=== PATIENT | female | born 1945 | race Caucasian/White ===

== ENCOUNTER → 2017-03-18 | Outpatient (REF) | payer MEDICARE, OTHER ==
[~2017-03-18] MED LIST: ALLO10TA PO; CALTCHW PO; FISH5CAP PO; FLAX1300 PO; FLON1SPR; LISI2.5T3 PO; MAGN500C PO; METF500T13 PO; OMEP40CA2 PO; OSTETAB4 PO; SPIR50TA2 PO; TORS100T PO; VITA500046 PO; VITACAP8 PO; ZYRT10CA PO; [UNRECOGNIZED DRUG - CODE] EX; [UNRECOGNIZED DRUG - CODE] XX
[2017-03-18 13:34] LABS: BASO % 0.3 % (0.0-1.0); EOS # 0.2 K/mm3 (0.0-0.50); EOS % 2.4 % (0.0-3.0); LARGE UNSTAINED CELL # 0.1 K/mm3 (0.0-0.4); LARGE UNSTAINED CELL % 1.1 % (0.0-4.0); LYMPH # 1.8 K/mm3 (1.5-4.5); LYMPH % 16.4 % (24.0-44.0); MEAN CORPUSCULAR HEMOGLOBIN 29.8 pg (27.0-33.0); MEAN CORPUSCULAR VOLUME 90.4 fl (80.0-96.0); MONO # 0.5 K/mm3 (0.0-0.8); MONO % 4.5 % (0.0-5.0); NEUTROPHILS # 7.6 K/mm3 (1.8-7.7); NEUTROPHILS % 75.3 % (36.0-66.0); PLATELET COUNT, AUTOMATED 298 k/mm3 (150-450); RED CELL DISTRIBUTION WIDTH 14.7 % (11.5-14.5); WHITE BLOOD COUNT 10.1 K/mm3 (4.0-10.0)
[2017-03-18 13:44] LABS: FOLATE > 24.0 NG/ML; VITAMIN B12 LEVEL 834 PG/ML
[2017-03-18 13:49] LABS: ALBUMIN 3.7 GM/DL (3.2-5.2); ALBUMIN/GLOBULIN RATIO 1.12 (1.00-1.93); ALKALINE PHOSPHATASE 86 U/L (45-117); ALT/SGPT 29 U/L (12-78); ANION GAP 11 MEQ/L (8-16); AST/SGOT 10 U/L (15-37); BILIRUBIN,TOTAL 0.4 MG/DL (0.2-1.0); BLOOD UREA NITROGEN 23 MG/DL (7-18); CALCIUM LEVEL 8.9 MG/DL (8.8-10.2); CARBON DIOXIDE LEVEL 28 MEQ/L (21-32); CHLORIDE LEVEL 95 MEQ/L (98-107); CREATININE FOR GFR 1.13 MG/DL (0.55-1.02); GLOMERULAR FILTRATION RATE 50.7 (>39); GLUCOSE, FASTING 122 MG/DL (83-110); POTASSIUM SERUM 3.8 MEQ/L (3.5-5.1); SODIUM LEVEL 134 MEQ/L (136-145)
[2017-03-18 14:15] LABS: ERYTHROCYTE SEDIMENTATION RATE 44 mm/hr (0-30)
[2017-03-23 00:06] LABS: VITAMIN E LEVEL 12.3 mg/L (6.5-21.5)
== END ==
LOC: M LABNEURO 12:24
PROVIDERS: ATTEND Psychiatry & Neurology Neurology
DX: R25.1 Tremor, unspecified (principal); Z79.01 Long term (current) use of anticoagulants

== ENCOUNTER → 2017-04-18 | Outpatient (REF) | payer MEDICARE, OTHER ==
[2017-04-18 15:24] LABS: CALCIUM LEVEL 8.7 MG/DL (8.8-10.2); CREATININE FOR GFR 1.13 MG/DL (0.55-1.02); GLOMERULAR FILTRATION RATE 50.7 (>39); MAGNESIUM LEVEL 2.5 MG/DL (1.8-2.4); POTASSIUM SERUM 4.3 MEQ/L (3.5-5.1)
== END ==
LOC: M LABDRAW1 13:46
PROVIDERS: ATTEND Nurse Practitioner Family
DX: I10 Essential (primary) hypertension (principal); E78.2 Mixed hyperlipidemia

== ENCOUNTER → 2017-07-18 | Outpatient (CLI) | payer MEDICARE, BC ==
--- NOTE | 2017-07-18 14:41 | REP ---
Digital screening bilateral mammography with CAD: Comparison mammography July 12, 2016. Also reviewed are the June 25, 2015 and June 24, 2014 prior studies. Findings: In the right breast, today's mammography demonstrates a 7 mm well-circumscribed nodular neodensity projecting in the upper outer quadrant which merits further evaluation. In addition, there is a questionable developing density medially on the CC view only. Otherwise scattered fibroglandular elements are again seen and are unchanged from prior mammography dating back to 2013. The left breast is unchanged and otherwise unremarkable as well. Impression: BI-RADS category 0 incomplete. Additional imaging and/or prior images needed. Incomplete breast imaging right breast nodular neodensity and possible developing density separately identified in the right breast. Diagnostic right breast mammography and focused right breast sonography recommended. This mammogram was interpreted with the aid of an FDA-approved computer-aided detection system. The patient states that she/he has not had a clinical breast exam in over a year. The patient letter being requested is M0.
== END ==
LOC: M WHC 12:38
PROVIDERS: ATTEND Nurse Practitioner Family
DX: Z12.31 Encounter for screening mammogram for malignant neoplasm of breast (principal)

== ENCOUNTER → 2017-07-28 | Outpatient (REF) | payer MEDICARE, BC ==
[2017-07-28 13:31] LABS: RETIC HEMOGLOBIN EQUIVALENT 32.9 pg (24-36); RETICULOCYTE % 1.8 % (0.5-1.5)
[2017-07-28 13:39] LABS: URIC ACID 6.6 MG/DL (2.6-6.0)
== END ==
LOC: M LAB REF 12:48
PROVIDERS: ATTEND Family Medicine
DX: M10.9 Gout, unspecified (principal); D64.9 Anemia, unspecified

== ENCOUNTER 2018-05-15 08:39 | Day surgery (SDC) | payer MEDICARE, BC, OTHER ==
[2018-05-15] MEDS: NS 1,000 ML IV (07:00)
[2018-05-15] MEDS ORDERED: PROPOFOL 200 MG/20 ML VIAL As Ordered ×2 (09:19)
[2018-05-15] MEDS ORDERED: fentaNYL 100 MCG/2 ML INJECTION (J3010) As Ordered (09:19)
[2018-05-15] MEDS ORDERED: LIDOCAINE 2% INJ 100 MG/5 ML SDV (FOR ANES.) As Ordered (09:19)
== END 2018-05-15 11:32 | disposition home or self-care (01) ==
LOC: M OPP 08:39
DX: Z12.11 Encounter for screening for malignant neoplasm of colon (principal); Z86.010 Personal history of colon polyps; D12.0 Benign neoplasm of cecum; K62.1 Rectal polyp; K64.0 First degree hemorrhoids; K57.30 Diverticulosis of large intestine without perforation or abscess without bleeding; R12 Heartburn; K22.70 Barrett's esophagus without dysplasia; K22.8 Other specified diseases of esophagus; K44.9 Diaphragmatic hernia without obstruction or gangrene; I45.10 Unspecified right bundle-branch block; I25.10 Atherosclerotic heart disease of native coronary artery without angina pectoris; I10 Essential (primary) hypertension; I73.9 Peripheral vascular disease, unspecified; E11.51 Type 2 diabetes mellitus with diabetic peripheral angiopathy without gangrene; M10.9 Gout, unspecified; Z87.19 Personal history of other diseases of the digestive system; K21.9 Gastro-esophageal reflux disease without esophagitis; A49.02 Methicillin resistant Staphylococcus aureus infection, unspecified site; F41.9 Anxiety disorder, unspecified; R51 Headache; G62.9 Polyneuropathy, unspecified; Z86.711 Personal history of pulmonary embolism; G47.30 Sleep apnea, unspecified; Z87.891 Personal history of nicotine dependence; Z88.1 Allergy status to other antibiotic agents; Z88.8 Allergy status to other drugs, medicaments and biological substances; Z88.3 Allergy status to other anti-infective agents; Z88.0 Allergy status to penicillin; Z91.048 Other nonmedicinal substance allergy status; Z79.84 Long term (current) use of oral hypoglycemic drugs; Z79.899 Other long term (current) drug therapy
CPT/HCPCS: 45380

== ENCOUNTER → 2018-07-19 | Outpatient (CLI) | payer MEDICARE, BC | LOC: M WHC 08:09 | DX: Z12.31 Encounter for screening mammogram for malignant neoplasm of breast (principal) | CPT/HCPCS: 77067 ==

== ENCOUNTER → 2018-12-12 | Outpatient (REF) | payer MEDICARE ==
[~2018-12-12] MED LIST changes: +JANU50TA25 PO; +LISI-1046 PO; -LISI2.5T3 PO; +MAGN64TASA PO; +SINE25TA5 PO; -SPIR50TA2 PO; +SPIR50TA4 PO
== END ==
LOC: M LAB REF 13:37
PROVIDERS: ATTEND Family Medicine
DX: M10.9 Gout, unspecified (principal)

== ENCOUNTER → 2019-06-15 | Outpatient (CLI) | payer MEDICARE ==
[~2019-06-15] MED LIST changes: -OMEP40CA2 PO; +OMEP40CA97 PO
--- NOTE | 2019-06-15 15:17 | REP ---
Seven views cervical spine: Indication: Cervical spine trauma. Comparison: None. Findings: There is no acute fracture, subluxation or dislocation. Multilevel degenerative sequelae are present most pronounced at C4/C5, C5/C6 and C6/C7. No erosive osseous lesions are detected. Prevertebral and additional visualized soft tissues are unremarkable. Impression: No acute osseous cervical spine injury. Electronically Signed by Craig Metzger DO 06/15/2019 03:08 P
--- NOTE | 2019-06-15 15:20 | REP ---
Six views right ribs/chest: 06/15/2019. Indication: Right chest trauma. Comparison: 05/04/2012. Findings: There is no evidence of acute rib fracture, subluxation or dislocation. There is no evidence of lung contusion. The lungs are clear. The cardiomediastinal silhouette is unremarkable. Impression: No acute rib fracture, or lung contusion. Electronically Signed by Craig Metzger DO 06/15/2019 03:11 P
--- NOTE | 2019-06-15 18:09 | REP ---
REASON: Pain. There is a spur arising from the inferior surface of the acromion process projecting into the subacromial space. The glenohumeral relationship is within normal limits. There is no fracture, dislocation, or subluxation. IMPRESSION:Chronic changes as described above. Electronically Signed by José Harris DO 06/18/2019 02:32 P
--- NOTE | 2019-06-15 18:28 | REP ---
HISTORY: Pain after trauma. FINDINGS: No acute fracture or destructive osseous lesion. Electronically Signed by José Harris DO 06/18/2019 02:32 P
--- NOTE | 2019-06-15 18:33 | REP ---
HISTORY: Contusion. FINDINGS: No acute fracture or destructive osseous lesion. Electronically Signed by José Harris DO 06/18/2019 02:33 P
--- NOTE | 2019-06-15 18:33 | REP ---
HISTORY: Contusion. COMPARISON: None. An elbow series consists of four views. If the patient has been in trauma, four view series is recommended. This limited two view examination shows no acute abnormality. Electronically Signed by José Harris DO 06/18/2019 02:33 P
== END ==
LOC: M WUC 14:29
PROVIDERS: ATTEND Physician Assistant
DX: M25.712 Osteophyte, left shoulder (principal); S10.83XA Contusion of other specified part of neck, initial encounter; S20.211A Contusion of right front wall of thorax, initial encounter; S40.022A Contusion of left upper arm, initial encounter

== ENCOUNTER → 2019-08-21 | Outpatient (REF) | payer MEDICARE, OTHER ==
[2019-08-21 13:23] LABS: PERCENT SATURATION 19.5 % (13.2-45.0)
[2019-08-21 13:42] LABS: FOLATE 21.9 NG/ML
== END ==
LOC: M LAB REF 12:37
PROVIDERS: ATTEND Family Medicine
DX: D64.9 Anemia, unspecified (principal); R26.89 Other abnormalities of gait and mobility

== ENCOUNTER → 2019-08-27 | Outpatient (CLI) | payer MEDICARE, BC ==
--- NOTE | 2019-08-27 14:01 | REPMRS ---
Patient History The patient states she has not had a clinical breast exam in over a year. Family history of ovarian cancer in paternal aunt, ovarian cancer in paternal aunt. Benign cyst aspiration of the left breast. No Hormone Replacement Therapy Digital Woman Screen Mammo: August 27, 2019 - Exam #: [id number] Bilateral CC and MLO view(s) were taken. Technologist: Julia Vernon, Technologist Prior study comparison: July 19, 2018, bilateral digital woman screen mammo performed at [facility]. July 18, 2017, digital woman screen mammo performed at [facility]. July 12, 2016, digital woman screen mammo performed at [facility]. FINDINGS: The breast tissue is heterogeneously dense. This may lower the sensitivity of mammography. There is a moderate amount of heterogeneously dense fibroglandular tissue which is fairly symmetric. There is no interval development of dominant mass, architectural distortion, or grouped microcalcification typical of malignancy. There has been no change in the appearance of the mammogram from the prior studies. 3-D tomosynthesis shows no additional findings. Assessment: BI-RADS/ACR category 1 mammogram. Negative Mammogram. Recommendation Routine screening mammogram of both breasts in 1 year (for women over age 40). This patient's Lifetime Breast Cancer RIsk is estimated at 3.2 %. This mammogram was interpreted with the aid of an FDA-approved computer-aided dectection system. Electronically Signed By: Satya Robins MD 08/27/19 [id number]
== END ==
LOC: M WHC 12:41
PROVIDERS: ATTEND Family Medicine
DX: Z12.31 Encounter for screening mammogram for malignant neoplasm of breast (principal); Z86.018 Personal history of other benign neoplasm

== ENCOUNTER → 2019-12-19 | Outpatient (REF) | payer MEDICARE, OTHER | LOC: M LAB REF 16:59 | PROVIDERS: ATTEND Family Medicine | DX: N39.0 Urinary tract infection, site not specified (principal) ==

== ENCOUNTER → 2019-12-21 | Outpatient (REF) | payer MEDICARE, OTHER | LOC: M LAB REF 11:15 | PROVIDERS: ATTEND Family Medicine | DX: N39.0 Urinary tract infection, site not specified (principal); R31.9 Hematuria, unspecified ==

== ENCOUNTER → 2020-01-06 | Outpatient (CLI) | payer MEDICARE, OTHER ==
[~2020-01-06] MED LIST changes: -LISI-1046 PO; +LISI2.5T2 PO
--- NOTE | 2020-01-16 14:58 | REP ---
Clinical: Right facial injury. Technique: Complete facial bone series (seven views total). Findings: The osseous structures including visualized orbital bones are intact and there is no evidence for acute fracture or dislocation. Nasal bones and zygomatic arches are intact. Temporomandibular joints and mandible appear normal. Sinuses are well aerated and clear. No fluid levels are identified to suggest occult injury. No foreign body. Impression: No evidence for acute orbital fracture. Electronically Signed by Luis Barnes MD 01/16/2020 02:49 P
== END ==
LOC: M WUC 13:05
PROVIDERS: ATTEND Nurse Practitioner Family
DX: S00.83XA Contusion of other part of head, initial encounter (principal); R29.6 Repeated falls; X58.XXXA Exposure to other specified factors, initial encounter; Y92.9 Unspecified place or not applicable

== ENCOUNTER → 2020-02-25 | Outpatient (REF) | payer MEDICARE, OTHER | LOC: M LAB REF 11:20 | PROVIDERS: ATTEND Family Medicine | DX: M10.9 Gout, unspecified (principal) ==

== ENCOUNTER → 2020-02-27 | Outpatient (REF) | payer MEDICARE, OTHER ==
[2020-02-27 18:00] LABS: C REACTIVE PROTEIN QUANTITATIV 1.91 MG/DL (0.00-0.30); FERRITIN 34 NG/ML (8-252)
[2020-02-27 18:07] LABS: FOLATE > 24.0 NG/ML
[2020-02-27 18:44] LABS: VITAMIN B12 LEVEL 1181 PG/ML
[2020-02-29 16:50] LABS: Lyme Disease IgG/IgM Antibodie <0.91 ISR (0.00-0.90); Lyme Disease IgM Ab Quantitati <0.80 index (0.00-0.79)
== END ==
LOC: M LAB REF 16:34
PROVIDERS: ATTEND Family Medicine
DX: M25.50 Pain in unspecified joint (principal); D64.9 Anemia, unspecified

== ENCOUNTER → 2020-07-01 | Outpatient (REF) | payer MEDICARE, OTHER ==
[2020-07-01 13:44] LABS: C REACTIVE PROTEIN QUANTITATIV 1.92 MG/DL (0.00-0.30)
[2020-07-02 13:07] LABS: ANTINUCLEAR ANTIBODIES DIRECT Negative (Negative)
== END ==
LOC: M LAB REF 12:28
PROVIDERS: ATTEND Family Medicine
DX: M25.50 Pain in unspecified joint (principal); R70.0 Elevated erythrocyte sedimentation rate; R79.82 Elevated C-reactive protein (CRP)

== ENCOUNTER → 2020-07-30 | Outpatient (CLI) | payer MEDICARE, OTHER ==
--- NOTE | 2020-07-30 15:03 | REP ---
INDICATION: PAIN. COMPARISON: None. TECHNIQUE: Four views FINDINGS: Four views of the left knee demonstrate patellofemoral spur formation and joint space narrowing. There is also non articular spurring on the superior and inferior pole of patella. No sunrise views included. There is medial compartment osteoarthritic spurring as well.. No fracture or subluxation is seen. No opaque foreign body noted. IMPRESSION: Medial and patellofemoral compartment osteoarthritis. Non articular spurring on the patella as well. No sunrise view included. No fracture or subluxation seen.. <Electronically signed by Satya Robins > 07/30/20 1500
== END ==
LOC: M WUC 10:02
PROVIDERS: ATTEND Nurse Practitioner Family
DX: M25.562 Pain in left knee (principal)

== ENCOUNTER → 2020-08-26 | Outpatient (CLI) | payer MEDICARE, BC, OTHER ==
--- NOTE | 2020-08-26 17:47 | REP ---
INDICATION: INFLAMMATORY POLYARTHROPATHY, LABS 1ST THEN XR COMPARISON: None. TECHNIQUE: AP, lateral, bilateral oblique views right and left foot. FINDINGS: Right foot demonstrates mild age-related changes without significant osteoarthritic or inflammatory arthritic findings. The metatarsophalangeal and interphalangeal joints are essentially normal/age-appropriate. Oblique view of the midfoot demonstrates small area of chronic heterotopic ossification along the inferolateral margin of the cuboid. Lateral view demonstrates small calcaneal heel spur. There is no evidence for acute or healed injury. Left foot demonstrates mild age-related changes without significant osteoarthritic or inflammatory arthritic changes. The metatarsophalangeal and interphalangeal joints are essentially normal/age-appropriate. Oblique view demonstrates small chronic heterotopic ossification along the inferolateral margin of the cuboid. Lateral view demonstrates small calcaneal heel spur. There is no evidence for acute or healed injury. IMPRESSION: Essentially symmetric and age-appropriate examination. No overt osteoarthritic or inflammatory arthritic changes noted. <Electronically signed by Luis Barnes > 08/26/20 [id number]
--- NOTE | 2020-08-26 17:50 | REP ---
INDICATION: INFLAMMATORY POLYARTHROPATHY, LABS 1ST THEN XR COMPARISON: None. TECHNIQUE: AP, lateral, bilateral oblique views right and left ankle. FINDINGS: Left ankle demonstrates moderate diffuse soft tissue swelling. The osseous structures and joint spaces are relatively age-appropriate and normal. Ankle mortise appears intact. No obvious acute or healed injury. Lateral view demonstrates small calcaneal heel spur. Right ankle demonstrates moderate diffuse soft tissue swelling. Small elements of cortical irregularity and soft tissue calcification adjacent to the anterior superior margin of the talus. Small calcaneal heel spur identified. Ankle mortise is intact. No obvious acute or healed injury. IMPRESSION: Bilateral moderate diffuse soft tissue swelling. Mild arthritic changes (right greater than left). <Electronically signed by Luis Barnes > 08/26/20 [id number]
--- NOTE | 2020-08-26 17:51 | REP ---
INDICATION: INFLAMMATORY POLYARTHROPATHY, LABS 1ST THEN XR COMPARISON: None. TECHNIQUE: AP, lateral, bilateral oblique views right and left wrist. FINDINGS: Left wrist demonstrates relatively normal age-appropriate appearance to the carpal bones and associated joint spaces including carpometacarpal and radiocarpal joints. There is no evidence for acute or healed injury. No significant osteoarthritic or inflammatory arthritic findings noted. Surrounding soft tissues are unremarkable. Right wrist demonstrates relatively normal age-appropriate appearance of the carpal bones and associated joint spaces including carpometacarpal and radiocarpal joints. There is no evidence for acute or healed injury. No significant osteoarthritic or inflammatory arthritic findings noted. Surrounding soft tissues are unremarkable. IMPRESSION: Symmetric essentially age-appropriate examination. <Electronically signed by Luis Barnes > 08/26/20 [id number]
--- NOTE | 2020-08-26 17:55 | REP ---
INDICATION: INFLAMMATORY POLYARTHROPATHY, LABS 1ST THEN XR COMPARISON: None. TECHNIQUE: AP, lateral, bilateral oblique views right and left hand. FINDINGS: Right hand: The osseous structures and joint spaces are intact and age-appropriate. No significant osteoarthritic or inflammatory arthritic changes are appreciated. Very minimal joint space narrowing noted to the interphalangeal joints. There is no evidence for acute fracture or dislocation. Surrounding soft tissues are unremarkable. No subcutaneous emphysema or radiodense foreign body. Left hand: The osseous structures and joint spaces are intact and age-appropriate. No significant osteoarthritic or inflammatory arthritic changes are appreciated. Very minimal joint space narrowing noted to the interphalangeal joints. There is no evidence for acute fracture or dislocation. Surrounding soft tissues are unremarkable. No subcutaneous emphysema or radiodense foreign body. IMPRESSION: Minimal symmetric changes to the interphalangeal joints. Otherwise essentially age-appropriate bilateral hand radiograph examination. <Electronically signed by Luis Barnes > 08/26/20 [id number]
[2020-08-26 18:24] LABS: BASO # 0.1 10^3/uL (0.0-0.2); BASO % 0.5 % (0.0-1.0); EOS # 0.1 10^3/uL (0.0-0.5); EOS % 0.9 % (0.0-3.0); HEMATOCRIT 36.7 % (36.0-47.0); HEMOGLOBIN 11.3 g/dl (12.0-15.5); LYMPH # 1.8 10^3/uL (1.5-5.0); LYMPH % 15.3 % (24.0-44.0); MEAN CORPUSCULAR HEMOGLOBIN 28.3 pg (27.0-33.0); MEAN CORPUSCULAR HGB CONC 30.8 g/dl (32.0-36.5); MONO # 0.8 10^3/uL (0.0-0.8); MONO % 6.8 % (0.0-5.0); NEUTROPHILS # 9.2 10^3/uL (1.5-8.5); NEUTROPHILS % 76.1 % (36.0-66.0); PLATELET COUNT, AUTOMATED 286 10^3/uL (150-450); RED BLOOD COUNT 3.99 10^6/uL (4.00-5.40)
[2020-08-26 18:43] LABS: CREATININE,RANDOM URINE < 13.0 MG/DL; TOTAL PROTEIN,RANDOM URINE 5.4 MG/DL (0.0-12.0)
[2020-08-26 18:48] LABS: APPEARANCE, URINE HAZY (CLEAR); BACTERIA, URINE AUTO NEGATIVE (NEGATIVE); BILIRUBIN, URINE AUTO NEGATIVE (NEGATIVE); BLOOD, URINE BLOOD NEGATIVE (NEGATIVE); COLOR, URINE YELLOW (YELLOW); GLUCOSE, URINE (UA) AUTO NEGATIVE (NEGATIVE); KETONE, URINE AUTO NEGATIVE (NEGATIVE); LEUKOCYTE ESTERASE, URINE AUTO NEGATIVE (NEGATIVE); MUCUS, URINE SMALL (NEGATIVE); NITRITE, URINE AUTO NEGATIVE (NEGATIVE); PROTEIN, URINE AUTO NEGATIVE (NEGATIVE); RBC, URINE AUTO 0 /HPF (0-3); SPECIFIC GRAVITY URINE AUTO 1.005 (1.002-1.035); SQUAMOUS EPITHELIAL CELL UR AU 0 /HPF (0-6); UROBILINOGEN, URINE AUTO 0.2 mg/dL (0.0-2.0); WBC, URINE AUTO 0 /HPF (0-3)
[2020-08-26 18:52] LABS: COMPLEMENT C3 176 MG/DL (90-180); COMPLEMENT C4 29 MG/DL (10-40); HEPATITIS B SURFACE ANTIBODY POSITIVE (POSITIVE); RHEUMATOID FACTOR QUANT 15.2 IU/ML (<15.0); TOTAL PROTEIN 7.7 GM/DL (6.4-8.2)
[2020-08-26 19:03] LABS: HEPATITIS B SURFACE ANTIGEN NEGATIVE (NEGATIVE)
[2020-08-26 19:31] LABS: HEPATITIS C VIRUS ABY INDEX 0.1 INDEX (<0.8)
[2020-08-26 19:51] LABS: ERYTHROCYTE SEDIMENTATION RATE 52 mm/hr (0-30)
[2020-08-28 15:39] LABS: ALBUMIN % 55.9 % (55.8-66.1); ALPHA-1-GLOBULIN % 4.4 % (2.9-4.9); ALPHA-2-GLOBULINS % 12.3 % (7.1-11.8)
[2020-08-28 15:40] LABS: ALPHA-1-GLOBULINS 0.34 GM/DL (0.17-0.41); ALPHA-2-GLOBULINS 0.95 GM/DL (0.42-0.99); BETA-1-GLOBULINS 0.62 GM/DL (0.28-0.60); BETA-2-GLOBULINS 0.52 GM/DL (0.19-0.55); BETA-2-GLOBULINS % 6.8 % (3.2-6.5); GAMMA GLOBULIN % 12.6 % (11.1-18.8); GAMMA GLOBULINS 0.97 GM/DL (0.65-1.58)
[2020-09-01 14:07] LABS: ANCA-ATYPICAL <1:20 titer (Neg:<1:20); ANTI CENTROMERE ANTIBODY <0.2 AI (0.0-0.9); ANTI DS-DNA AB Negative (Negative); ANTI JO-1 ANTIBODIES <20 Units (<20); ANTI SCLERODERMA ANTIBODIES <0.2 AI (0.0-0.9); ANTI-HISTONE ANTIBODIES 0.4 Units (0.0-0.9); BETA-2 GLYCOPROTEIN I ABY IGA <9 (0-25); BETA-2 GLYCOPROTEIN I ABY IGG <9 (0-20); BETA-2 GLYCOPROTEIN I ABY IGM <9 (0-32); CARDIOLIPIN IGA ANTIBODY <9 APL U/mL (0-11); CARDIOLIPIN IGG ANTIBODY <9 GPL U/mL (0-14); CARDIOLIPIN IGM ANTIBODY <9 MPL U/mL (0-12); COMPLEMENT TOTAL (CH50) > 60 U/mL (>41); CYCLIC CITRULLINATED PEPTIDE 6 units (0-19); CYTOPLASMIC NEUTROP AB ANCA-C <1:20 titer (Neg:<1:20); HEPATITIS B CORE ANTIBODY IGG Negative (Negative); PERINUCLEAR AB ANCA-P <1:20 titer (Neg:<1:20); RNP ANTIBODY < 0.2 AI (0.0-0.9); SMITHS ANTIBODY < 0.2 AI (0.0-0.9); SSA SJOGRENS A <0.2 AI (0.0-0.9); SSB SJOGRENS B <0.2 AI (0.0-0.9)
== END ==
LOC: M LAB 16:10
PROVIDERS: ATTEND Internal Medicine
DX: M06.4 Inflammatory polyarthropathy (principal); R76.8 Other specified abnormal immunological findings in serum; M77.31 Calcaneal spur, right foot; M77.32 Calcaneal spur, left foot; M25.471 Effusion, right ankle; M25.472 Effusion, left ankle
CPT/HCPCS: 36415; 73110; 73130; 73610; 73630; 81001; 82570; 83520; 84156; 84165; 85025; 85652; 86146; 86147; 86160; 86162; 86200; 86225; 86235; 86255; 86256; 86431; 86704; 86706; 86803; 87340; G0463

== ENCOUNTER → 2020-09-12 | Outpatient (CLI) | payer MEDICARE, BC ==
--- NOTE | 2020-09-12 09:23 | REPMRS ---
Patient History The patient states she has not had a clinical breast exam in over a year. Family history of ovarian cancer in paternal aunt, ovarian cancer in paternal aunt. Benign cyst aspiration of the left breast. No Hormone Replacement Therapy 3D TOMOSYNTHESIS WAS PERFORMED. [facility] for [facility] 3.[facility]%. Volpara breast density b. Digital Woman Screen Mammo: September 12, 2020 - Exam #: [id number] Bilateral CC and MLO view(s) were taken. Technologist: Vero Foster, Technologist Prior study comparison: August 27, 2019, bilateral digital woman screen mammo performed at [facility]. July 19, 2018, bilateral digital woman screen mammo performed at [facility]. FINDINGS: There are scattered fibroglandular densities. There is a fairly symmetric fibroglandular pattern in both breasts. There has been no interval development of masses, areas of architectural distortion or clusters of microcalcifications typical of malignancy. Small bilateral nodular densities are stable. No significant changes when compared with prior studies. Assessment: BI-RADS/ACR category 2 mammogram. Benign Findings. Recommendation Routine screening mammogram of both breasts in 1 year (for women over age 40). This mammogram was interpreted with the aid of an FDA-approved computer-aided dectection system. Electronically Signed By: Carlo García MD 09/12/20 0922
== END ==
LOC: M WHC 08:12
PROVIDERS: ATTEND Family Medicine
DX: Z12.31 Encounter for screening mammogram for malignant neoplasm of breast (principal); Z80.41 Family history of malignant neoplasm of ovary

== ENCOUNTER → 2020-09-19 | Outpatient (CLI) | payer MEDICARE, BC ==
[2020-09-25 09:46] LABS: DRVV SCREEN 42.5 SEC
== END ==
LOC: M WUC 08:07
PROVIDERS: ATTEND Internal Medicine
DX: M06.4 Inflammatory polyarthropathy (principal)

== ENCOUNTER → 2020-10-09 | Outpatient (REF) | payer MEDICARE, OTHER ==
[2020-10-13 19:10] LABS: G6PD2 4.06 x10E6/uL (3.77-5.28)
== END ==
LOC: M SFHCRHEU 12:43
PROVIDERS: ATTEND Internal Medicine
DX: M05.9 Rheumatoid arthritis with rheumatoid factor, unspecified (principal)
CPT/HCPCS: 82955; G0463

== ENCOUNTER → 2021-02-05 | Outpatient (REF) | payer MEDICARE, OTHER ==
[~2021-02-05] MED LIST changes: +CARB-89 PO; +OMEP40CA4 PO; -OMEP40CA97 PO; -SINE25TA5 PO
[2021-02-05 16:53] LABS: C REACTIVE PROTEIN QUANTITATIV 0.8 MG/DL (0.00-0.30); CALCIUM LEVEL 10.1 MG/DL (8.8-10.2); CREATININE FOR GFR 1.18 MG/DL (0.55-1.30); GLOMERULAR FILTRATION RATE 47.7 (>39); POTASSIUM SERUM 4.7 MEQ/L (3.5-5.1)
== END ==
LOC: M SFHCRHEU 12:22
PROVIDERS: ATTEND Internal Medicine
DX: M05.9 Rheumatoid arthritis with rheumatoid factor, unspecified (principal); N18.32 Chronic kidney disease, stage 3b
CPT/HCPCS: 80048; 85652; 86140; G0463

== ENCOUNTER → 2021-02-24 | Outpatient (REF) | payer MEDICARE, OTHER ==
[2021-02-24 13:45] LABS: FERRITIN 30 NG/ML (8-252); FOLATE > 24.0 NG/ML; VITAMIN B12 LEVEL 1103 PG/ML
== END ==
LOC: M LAB REF 12:17
PROVIDERS: ATTEND Family Medicine
DX: D64.9 Anemia, unspecified (principal)

== ENCOUNTER → 2021-04-23 | Outpatient (CLI) | payer MEDICARE, OTHER ==
[~2021-04-23] MED LIST changes: -LISI2.5T2 PO; +LISI2.5T9 PO
--- NOTE | 2021-04-23 12:22 | REP ---
INDICATION: RIGHT SHOULDER PAIN, S/P FALL. COMPARISON: None. TECHNIQUE: Three views of the right shoulder are provided. FINDINGS: The right glenohumeral and acromioclavicular joints are normally aligned. There is subcortical cyst formation in the humeral head and some glenohumeral spurring is seen. There is periarticular soft tissue calcification at the superior margin of the glenohumeral articulation. Some spurring is seen in the greater tuberosity. No bony destructive lesion is seen. IMPRESSION: Periarticular soft tissue calcification consistent with chronic tendonitis and bursitis. Osteoarthritic spurring. No traumatic abnormality seen. <Electronically signed by Satya Robins > 04/23/21 [id number]
== END ==
LOC: M RAD 11:12
PROVIDERS: ATTEND Physician Assistant Medical
DX: M19.011 Primary osteoarthritis, right shoulder (principal)

== ENCOUNTER → 2021-05-08 | Outpatient (REF) | payer MEDICARE, OTHER | LOC: M SFHCRHEU 13:10 | PROVIDERS: ATTEND Internal Medicine | DX: M05.9 Rheumatoid arthritis with rheumatoid factor, unspecified (principal); F32.9 Major depressive disorder, single episode, unspecified; T23.222D Burn of second degree of single left finger (nail) except thumb, subsequent encounter | CPT/HCPCS: 85652; 86140; G0463 ==

== ENCOUNTER → 2021-07-14 | Outpatient (REF) | payer MEDICARE, OTHER | LOC: M LAB REF 12:26 | PROVIDERS: ATTEND Family Medicine | DX: D64.9 Anemia, unspecified (principal); N39.0 Urinary tract infection, site not specified ==

== ENCOUNTER 2021-09-02 10:23 | Day surgery (SDC) | payer MEDICARE, BC, OTHER ==
[~2021-09-02] VITALS: Ht 165.1 cm; Wt 122.5 kg
[~2021-09-02 10:23] MED LIST changes: +ACET500P3 PO; +ATOR1TAB19 PO; +CALC1CAP39 PO; +D31000TA2 PO; +DULO1CAP6 PO; +EQL50TAB2 PO; +LEVE250T5 PO; +MAGN400C2 PO; +MEDICAL MARIJUANNA PO; +METF-839 PO; +METR0.7534 TOP; +MM S100C PO; +NS 1,000 ML IV ONE; +OSTETAB2 PO; +OZEM2INJ SC; +PLAQ200T4 PO; +QC A10TA PO; +SUSTAINE EYE DROPS
[2021-09-02] MEDS ORDERED: fentaNYL 100 MCG/2 ML INJECTION (J3010) As Ordered ONE (10:58)
[2021-09-02] MEDS ORDERED: propofoL 200 MG/20 ML VIAL As Ordered ONE (11:53)
[2021-09-02] MEDS ORDERED: LIDOCAINE 2% 100MG/5ML SDV (FOR ANES.) As Ordered ONE (11:53)
[2021-09-02 12:10] VITALS: BP 117/59
== END 2021-09-02 12:39 | disposition home or self-care (01) ==
LOC: M OPP 10:23
PROVIDERS: ATTEND Internal Medicine Gastroenterology
DX: Z12.11 Encounter for screening for malignant neoplasm of colon (principal); Z86.010 Personal history of colon polyps; K64.0 First degree hemorrhoids; K22.89 Other specified disease of esophagus; K44.9 Diaphragmatic hernia without obstruction or gangrene; R12 Heartburn; Z79.84 Long term (current) use of oral hypoglycemic drugs; Z79.899 Other long term (current) drug therapy; Z88.0 Allergy status to penicillin; Z88.1 Allergy status to other antibiotic agents; Z88.8 Allergy status to other drugs, medicaments and biological substances; Z85.01 Personal history of malignant neoplasm of esophagus; Z87.891 Personal history of nicotine dependence
CPT/HCPCS: 43239; 88305; G0105; J3010

== ENCOUNTER → 2021-10-19 | Outpatient (CLI) | payer MEDICARE, BC, OTHER ==
[~2021-10-19] MED LIST changes: -NS 1,000 ML IV ONE
== END ==
LOC: M WHC 11:22
PROVIDERS: ATTEND Family Medicine
DX: Z12.31 Encounter for screening mammogram for malignant neoplasm of breast (principal)

== ENCOUNTER → 2022-10-22 | Outpatient (CLI) | payer MEDICARE, BC, OTHER ==
[~2022-10-22] MED LIST changes: +CARB-113 PO; -CARB-89 PO; -D31000TA2 PO; +GNPTAB37 PO; -QC A10TA PO; +VITA100093 PO
== END ==
LOC: M WHC 09:28
PROVIDERS: ATTEND Family Medicine
DX: Z12.31 Encounter for screening mammogram for malignant neoplasm of breast (principal)

== ENCOUNTER → 2022-12-15 | Outpatient (CLI) | payer MEDICARE, BC, OTHER | LOC: M WHC 08:50 | PROVIDERS: ATTEND Family Medicine | DX: M81.0 Age-related osteoporosis without current pathological fracture (principal); M85.89 Other specified disorders of bone density and structure, multiple sites ==

== ENCOUNTER → 2023-09-06 | Outpatient (CLI) | payer MEDICARE, BC, OTHER | LOC: M RAD 12:20 | PROVIDERS: ATTEND Internal Medicine | DX: M70.61 Trochanteric bursitis, right hip (principal); M16.11 Unilateral primary osteoarthritis, right hip ==

== ENCOUNTER → 2023-09-06 | Outpatient (REF) | payer MEDICARE, BC, OTHER ==
[2023-09-06 13:32] LABS: C REACTIVE PROTEIN QUANTITATIV 1.1 MG/DL (<1.0)
[2023-09-06 13:33] LABS: ALBUMIN 4.2 G/DL (3.2-5.2); BILIRUBIN,DIRECT 0.2 MG/DL (<0.4); BILIRUBIN,TOTAL 0.4 MG/DL (0.3-1.2); TOTAL PROTEIN 7.6 G/DL (5.7-8.2)
== END ==
LOC: M SFHCRHEU 11:23
PROVIDERS: ATTEND Internal Medicine
DX: M05.9 Rheumatoid arthritis with rheumatoid factor, unspecified (principal); Z79.899 Other long term (current) drug therapy

== ENCOUNTER → 2023-09-09 | Outpatient (CLI) | payer MEDICARE, BC, OTHER | LOC: M RAD 08:51 | PROVIDERS: ATTEND Internal Medicine Nephrology | DX: N18.32 Chronic kidney disease, stage 3b (principal); I70.1 Atherosclerosis of renal artery ==

== ENCOUNTER → 2023-10-26 | Outpatient (CLI) | payer MEDICARE, BC | LOC: M WHC 10:52 | PROVIDERS: ATTEND Family Medicine | DX: Z12.31 Encounter for screening mammogram for malignant neoplasm of breast (principal) ==

== ENCOUNTER → 2024-01-27 | Outpatient (REF) | payer MEDICARE, OTHER ==
[~2024-01-27] MED LIST changes: -METR0.7534 TOP; +METR60GE3 TOP
== END ==
LOC: M LAB REF 13:16
PROVIDERS: ATTEND Family Medicine
DX: M06.9 Rheumatoid arthritis, unspecified (principal)

== ENCOUNTER → 2024-05-02 | Outpatient (CLI) | payer MEDICARE, OTHER, BC | LOC: M WUC 09:34 | PROVIDERS: ATTEND Student in an Organized Health Care Education/Training Program | DX: M54.50 Low back pain, unspecified (principal); M51.36 Other intervertebral disc degeneration, lumbar region; M51.37 Other intervertebral disc degeneration, lumbosacral region ==

== ENCOUNTER → 2024-07-21 | Outpatient (CLI) | payer MEDICARE, BC | LOC: M RAD 10:50 | PROVIDERS: ATTEND Internal Medicine | DX: M25.551 Pain in right hip (principal); M16.11 Unilateral primary osteoarthritis, right hip ==

== ENCOUNTER → 2024-08-23 | Outpatient (REF) | payer MEDICARE, OTHER | LOC: M LAB REF 11:20 | PROVIDERS: ATTEND Student in an Organized Health Care Education/Training Program | DX: R30.0 Dysuria (principal) ==

== ENCOUNTER → 2024-10-10 | Outpatient (CLI) | payer MEDICARE, BC ==
[~2024-10-10] MED LIST changes: +ISOVUE-300 61% 100ML VIAL As Ordered ONE; +LIDOCAINE 1% MDV 20ML VIAL As Ordered ONE; +methylPREDNISolone 80MG/ML SUSP 1ML VIAL As Ordered ONE
== END ==
LOC: M RAD 12:31
PROVIDERS: ATTEND Orthopaedic Surgery
DX: M25.551 Pain in right hip (principal)
CPT/HCPCS: 20610; 77002; J1010; Q9967

== ENCOUNTER → 2024-10-29 | Outpatient (CLI) | payer MEDICARE, BC ==
[~2024-10-29] MED LIST changes: -ISOVUE-300 61% 100ML VIAL As Ordered ONE; -LIDOCAINE 1% MDV 20ML VIAL As Ordered ONE; -methylPREDNISolone 80MG/ML SUSP 1ML VIAL As Ordered ONE
== END ==
LOC: M WHC 10:30
PROVIDERS: ATTEND Family Medicine
DX: Z12.31 Encounter for screening mammogram for malignant neoplasm of breast (principal)

== ENCOUNTER → 2024-12-26 | Outpatient (REF) | payer MEDICARE, BC | LOC: M LAB REF 14:12 | PROVIDERS: ATTEND Nurse Practitioner Family | DX: R30.0 Dysuria (principal) ==

== ENCOUNTER → 2025-03-27 | Outpatient (REF) | payer MEDICARE, BC ==
[~2025-03-27] MED LIST changes: -EQL50TAB2 PO; +VITA1TAB82 PO
== END ==
LOC: M LAB REF 16:55
PROVIDERS: ATTEND Internal Medicine Nephrology
DX: N39.0 Urinary tract infection, site not specified (principal)

== ENCOUNTER → 2025-04-23 | Outpatient (CLI) | payer MEDICARE, BC ==
[~2025-04-23] MED LIST changes: +ISOVUE-300 61% 100 ML VIAL As Ordered ONE; +LIDOCAINE 1% MDV 20 ML VIAL As Ordered ONE; +methylPREDNISolone 80 MG/ML SUSP 1 ML VIAL As Ordered ONE
== END ==
LOC: M RAD 13:31
PROVIDERS: ATTEND Physician Assistant Surgical
DX: M25.551 Pain in right hip (principal)
CPT/HCPCS: 20610; 77002; J1010; Q9967

== ENCOUNTER 2025-06-27 11:53 | Emergency (ER) | payer MEDICARE, BC ==
[~2025-06-27] VITALS: Ht 165.1 cm; Wt 123.6 kg
[~2025-06-27 11:53] MED LIST changes: -ISOVUE-300 61% 100 ML VIAL As Ordered ONE; -LIDOCAINE 1% MDV 20 ML VIAL As Ordered ONE; -methylPREDNISolone 80 MG/ML SUSP 1 ML VIAL As Ordered ONE
[2025-06-27] MEDS ORDERED: HYDR300T PO (13:59)
[2025-06-27] MEDS ORDERED: TORS20TA2 PO (13:59)
[2025-06-27] MEDS ORDERED: SEMA0.257 SQ (13:59)
[2025-06-27] MEDS ORDERED: CALC1CAP31 PO (13:59)
[2025-06-27] MEDS ORDERED: POTA1TAB23 PO (13:59)
[2025-06-27] MEDS ORDERED: HOME MED LIST COMPLETE! XX SCH (14:00)
[2025-06-27 14:47] VITALS: BP 147/67; TEMP 97; O2SAT 98
== END 2025-06-27 14:49 | disposition home or self-care (01) ==
LOC: M ED 11:53
DX: M17.0 Bilateral primary osteoarthritis of knee (principal); M50.30 Other cervical disc degeneration, unspecified cervical region; M16.11 Unilateral primary osteoarthritis, right hip; W19.XXXA Unspecified fall, initial encounter; Z88.0 Allergy status to penicillin; Z88.1 Allergy status to other antibiotic agents; Z88.5 Allergy status to narcotic agent; Z88.8 Allergy status to other drugs, medicaments and biological substances; Z79.1 Long term (current) use of non-steroidal anti-inflammatories (NSAID); Z79.4 Long term (current) use of insulin; Z79.899 Other long term (current) drug therapy

== ENCOUNTER 2025-07-24 08:45 | Emergency (ER) | payer MEDICARE, BC ==
[~2025-07-24] VITALS: Ht 165.1 cm; Wt 122.7 kg
[~2025-07-24 08:45] MED LIST changes: +CALC1CAP31 PO; +HYDR300T PO; +POTA1TAB23 PO; +SEMA0.257 SQ; +TORS20TA2 PO
[2025-07-24 10:56] VITALS: BP 147/82; TEMP 97.4; O2SAT 97
[2025-07-24] MEDS: METOCLOPRAMIDE 10 MG TAB PO ONE (11:01)
[2025-07-24] MEDS: ACETAMINOPHEN 325 MG TAB PO ONE (11:01)
== END 2025-07-24 11:19 | disposition home or self-care (01) ==
LOC: M ED 08:45
DX: G44.301 Post-traumatic headache, unspecified, intractable (principal); E11.9 Type 2 diabetes mellitus without complications; I10 Essential (primary) hypertension; Z88.0 Allergy status to penicillin; Z88.1 Allergy status to other antibiotic agents; Z88.5 Allergy status to narcotic agent; Z91.048 Other nonmedicinal substance allergy status; Z79.1 Long term (current) use of non-steroidal anti-inflammatories (NSAID); Z79.899 Other long term (current) drug therapy; Z79.4 Long term (current) use of insulin

== ENCOUNTER → 2025-08-09 | Outpatient (CLI) | payer MEDICARE, BC ==
[~2025-08-09] MED LIST changes: +ISOVUE-300 61% 100 ML VIAL As Ordered ONE; +LIDOCAINE 1% MDV 20 ML VIAL As Ordered ONE; +methylPREDNISolone 80 MG/ML SUSP 1 ML VIAL As Ordered ONE
== END ==
LOC: M RAD 14:29
PROVIDERS: ATTEND Physician Assistant
DX: M25.551 Pain in right hip (principal)
CPT/HCPCS: 20610; 77002; J1010; Q9967